=== PATIENT | female | born 1975 | race Caucasian/White ===

== ENCOUNTER 2018-01-29 08:35 | Emergency (ER) | payer MEDICAID ==
[~2018-01-29] VITALS: Ht 157.5 cm; Wt 54.0 kg
--- NOTE | 2018-01-29 08:36 | NUR ---
PT BIBA BLS TO BED 4
--- NOTE | 2018-01-29 08:39 | NUR ---
Patient being evaluated by physician at bedside.
[2018-01-29 08:40] VITALS: BP 130/74
[2018-01-29] MEDS ORDERED: ACETAMINOPHEN 325 MG TAB PO ONE (08:45)
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
--- NOTE | 2018-01-29 08:52 | NUR ---
PT TAKEN TO XRAY VIA WHEELCHAIR
--- NOTE | 2018-01-29 09:03 | NUR ---
PT RETURNED FROM XRAY
--- NOTE | 2018-01-29 09:30 | NUR ---
pt resting comfortably in [facility] w/ vss and rr even and unlabored at this time. safety precautions in place. will continue to monitor.
[2018-01-29 10:00] VITALS: BP 130/74
== END 2018-01-29 10:01 | disposition home or self-care (01) ==
LOC: MED 08:35
DX: S16.1XXA Strain of muscle, fascia and tendon at neck level, initial encounter (principal); S00.93XA Contusion of unspecified part of head, initial encounter; V43.52XA Car driver injured in collision with other type car in traffic accident, initial encounter; Y93.I9 Activity, other involving external motion; Y92.488 Other paved roadways as the place of occurrence of the external cause; Y99.8 Other external cause status
CPT/HCPCS: 72040; 99284; Q0092

== ENCOUNTER 2022-07-07 16:56 | Emergency (ER) | payer MEDICAID ==
[~2022-07-07] VITALS: Ht 160 cm; Wt 57.6 kg
[2022-07-07 17:23] VITALS: BP 101/61
[2022-07-07] MEDS ORDERED: IBUPROFEN 600 MG TAB PO ONE (18:25)
[2022-07-07] MEDS ORDERED: IBUP-2213 PO (19:46)
== END 2022-07-07 20:04 | disposition home or self-care (01) ==
LOC: MED 16:56
DX: S93.402A Sprain of unspecified ligament of left ankle, initial encounter (principal); S93.602A Unspecified sprain of left foot, initial encounter; Z79.1 Long term (current) use of non-steroidal anti-inflammatories (NSAID); X58.XXXA Exposure to other specified factors, initial encounter; Y93.01 Activity, walking, marching and hiking; Y92.89 Other specified places as the place of occurrence of the external cause; Y99.8 Other external cause status
CPT/HCPCS: 73610; 73630; 99284